=== PATIENT | male | born 1975 | race Two or more races ===

== ENCOUNTER 2023-12-16 08:47 | Emergency (ER) | payer BC ==
[~2023-12-16] VITALS: Ht 162.6 cm; Wt 61.4 kg
[2023-12-16 09:17] LABS: Urine Bacteria MANY /hpf (None Seen); Urine Blood Negative /uL (Negative); Urine Clarity HAZY (Clear); Urine Color Yellow (Yellow); Urine Hyaline Cast MOD /lpf (0 - 2); Urine Mucus FEW (None Seen); Urine Protein, UAD 1+ (Negative); Urine Specific Gravity 1.021 (1.001-1.035); Urine Sperm PRESENT /hpf (None Seen); Urine Urobilinogen Normal (Negative); Urine WBC 15 /hpf (0 - 3); Urine pH 5.5 (5.0-8.0)
[2023-12-16 09:20] LABS: Basophils # (auto) 0 10 ^3/uL (0-0.2); Basophils % (auto) 0.6 % (0.0-2.0); Eosinophils # (auto) 0.1 10 ^3/uL (0-0.8); Eosinophils % (auto) 1.2 % (0.0-7.0); Hematocrit 43.1 % (41.0-53.0); Hemoglobin 14.1 g/dL (13.5-17.5); Lymphocytes # (auto) 1.7 10 ^3/uL (0.4-5.4); Mean Corpuscular Hgb Conc. 32.8 g/dL (32.0-36.0); Mean Corpuscular Volume 88.5 fL (80.0-100.0); Monocytes # (auto) 0.5 10 ^3/uL (0-1.3); Monocytes % (auto) 9.1 % (0.0-12.0); Neutrophils # (auto) 3.1 10 ^3/uL (1.6-8.6); Neutrophils % (auto) 57.1 % (37.0-80.0); Red Blood Cells 4.87 10^6/uL (4.5-5.90); Red Cell Distribution Width 14.1 % (11.8-14.3); White Blood Cell 5.3 10^3/uL (4.4-10.8)
[2023-12-16 09:32] LABS: Amphetamine Screen, Urine Neg (NEGATIVE); Barbiturate Scree,Urine Neg (NEGATIVE); Benzodiazephine Screen, Urine Neg (NEGATIVE); Cocaine Screen, Urine Neg (NEGATIVE); Opiate Scree,Urine Neg (NEGATIVE)
[2023-12-16 09:33] LABS: Cannabinoid Screen, Urine Neg (NEGATIVE); Phencyclidine Screen, Urine Neg (NEGATIVE)
[2023-12-16 09:39] LABS: Albumin 4.4 g/dL (3.2-4.8); Alkaline Phosphatase 55 U/L (46-116); Anion Gap 3 (5-15); Aspartate Aminotransferase < 8 U/L (13-40); BUN/Creatinine Ratio 12.1 (10.0-20.0); Blood Urea Nitrogen 12 mg/dL (9-23); Calcium 9.3 mg/dL (8.5-10.1); Carbon Dioxide 29 mmol/L (20-30); Chloride 102 mmol/L (98-107); Glucose 325 mg/dL (74-106); Sodium 134 mmol/L (136-145)
[2023-12-16 09:40] LABS: Bilirubin, Total 0.8 mg/dL (0.2-1.0); Total Protein 6.5 g/dL (5.7-8.2)
[2023-12-16 09:45] LABS: Alanine Aminotransferase < 9 U/L (7-40)
[2023-12-16] MEDS ORDERED: PANT40TA2 PO (11:32)
[2023-12-16 11:49] VITALS: BP 114/88; PULSE 93; RESP 16; TEMP 98.3; O2SAT 100
[2023-12-16] MEDS: PANTOPRAZOLE 40 MG TAB PO ONE (12:01)
== END 2023-12-16 12:03 | disposition home or self-care (01) ==
LOC: ER 08:47
DX: K29.00 Acute gastritis without bleeding (principal); E11.65 Type 2 diabetes mellitus with hyperglycemia; I10 Essential (primary) hypertension; Z79.899 Other long term (current) drug therapy
CPT/HCPCS: 36415; 80053; 80307; 81001; 85025

== ENCOUNTER 2024-07-27 17:42 | Inpatient (IN) | payer BC ==
[~2024-07-27] VITALS: Ht 154.9 cm; Wt 60.6 kg
[~2024-07-27 17:42] MED LIST: PANT40TA2 PO
[2024-07-27] MEDS: LORazepam 2MG/ML-1ML VIAL IV ONE (18:00)
[2024-07-27 18:29] LABS: Basophils # (auto) 0.1 10 ^3/uL (0-0.2); Eosinophils # (auto) 0.3 10 ^3/uL (0-0.8); Eosinophils % (auto) 2.8 % (0.0-7.0); Hemoglobin 15.6 g/dL (13.5-17.5); Lymphocytes # (auto) 3.3 10 ^3/uL (0.4-5.4); Monocytes # (auto) 0.9 10 ^3/uL (0-1.3); Red Cell Distribution Width 14.9 % (11.8-14.3)
[2024-07-27 18:30] LABS: Basophils % (auto) 1.1 % (0.0-2.0); Hematocrit 47.8 % (41.0-53.0); Lymphocytes % (auto) 28.7 % (10.0-50.0); Mean Corpuscular Hgb Conc. 32.7 g/dL (32.0-36.0); Mean Corpuscular Volume 88.6 fL (80.0-100.0); Neutrophils # (auto) 6.8 10 ^3/uL (1.6-8.6); Neutrophils % (auto) 59.4 % (37.0-80.0); Nucleated Red Blood Cells % 0.1 %; Platelet Count (auto) 477 10^3/uL (140-450); Red Blood Cells 5.39 10^6/uL (4.5-5.90); White Blood Cell 11.5 10^3/uL (4.4-10.8)
[2024-07-27 18:40] LABS: Base Excess -9.8 mmol/L (-2.0-3.0)
[2024-07-27 18:50] LABS: Alanine Aminotransferase 15 U/L (7-40); Alkaline Phosphatase 99 U/L (46-116); Anion Gap 25 (5-15); Aspartate Aminotransferase < 8 U/L (13-40); BUN/Creatinine Ratio 12.1 (10.0-20.0); Blood Urea Nitrogen 21 mg/dL (9-23); Calcium 10.8 mg/dL (8.7-10.4); Carbon Dioxide 15 mmol/L (20-31); Chloride 96 mmol/L (98-107); Potassium 5.2 mmol/L (3.5-5.1); Sodium 136 mmol/L (136-145)
[2024-07-27 18:51] LABS: Albumin 4.8 g/dL (3.2-4.8); Bilirubin, Total 0.6 mg/dL (0.2-1.0)
[2024-07-27 19:09] LABS: Glucose 538 mg/dL (74-106)
[2024-07-27] MEDS: SODIUM CHLORIDE 0.9% 1,000 ML IV SCH ×2 (19:15→23:15)
[2024-07-27] MEDS ORDERED: DEXTROSE (50%) 50ML SYRG IV PRN (19:15)
[2024-07-27] MEDS: SODIUM CHLORIDE 0.9% 1,000 ML IV ONE (19:28)
[2024-07-27] MEDS: ACCU-CHEK COMFORT CURVE STRIP VI SCH (19:30)
[2024-07-27] MEDS: INSULIN DRIP 100 UNIT/100ML 100 ML IV SCH (19:30)
[2024-07-27] MEDS: INSULIN LANTUS (GLARGINE) 1 /0.01ml (100units/ml) SC ONE (19:51)
[2024-07-27] MEDS: MIDAZOLAM HCL 2MG/2ML 2ml VIAL (1mg/ml) IM ONE (19:52)
[2024-07-27 20:17] LABS: Urine Bacteria None Seen /hpf (None Seen); Urine WBC None Seen /hpf (0 - 3)
[2024-07-27 20:18] LABS: Magnesium 2.3 mg/dL (1.6-2.6)
[2024-07-27 20:19] LABS: Phosphorus 5.7 mg/dL (2.4-5.1)
[2024-07-27 21:38] LABS: Urine Blood Negative /uL (Negative); Urine Clarity Clear (Clear); Urine Color Light-Yellow (Yellow); Urine Hyaline Cast FEW /lpf (0 - 2); Urine Protein, UAD Negative (Negative); Urine Specific Gravity 1.033 (1.001-1.035); Urine Urobilinogen Normal (Negative)
[2024-07-27] MEDS ORDERED: MORPHINE SULFATE INJ 2 MG/ml SYRG IV PRN (21:45)
[2024-07-27] MEDS ORDERED: NITROGLYCERIN 0.4 MG SL TAB SL PRN (21:45)
[2024-07-27] MEDS: ONDANSETRON HCL 4 MG/2 ML VIAL IV ONE (21:53)
[2024-07-27] MEDS: HALOPERIDOL LACTATE 5 MG/ML INJ VIAL IM ONE (21:53)
[2024-07-27] MEDS: diphenhdrAMINE HCL 50 MG/1 ML VL IM ONE (21:54)
[2024-07-27 22:11] LABS: Amphetamine Screen, Urine Neg (NEGATIVE); Barbiturate Scree,Urine Neg (NEGATIVE); Benzodiazephine Screen, Urine Neg (NEGATIVE); Cannabinoid Screen, Urine Neg (NEGATIVE); Cocaine Screen, Urine Neg (NEGATIVE); Opiate Scree,Urine Neg (NEGATIVE); Phencyclidine Screen, Urine Neg (NEGATIVE)
[2024-07-28 00:45] LABS: Base Excess -5.4 mmol/L (-2.0-3.0)
[2024-07-28] MEDS: SODIUM CHLORIDE 0.9% 1,000 ML IV SCH (01:15)
[2024-07-28 01:24] LABS: Potassium 3.8 mmol/L (3.5-5.1); Sodium 140 mmol/L (136-145)
[2024-07-28 01:25] LABS: Anion Gap 15 (5-15); Carbon Dioxide 18 mmol/L (20-31)
[2024-07-28 01:30] LABS: BUN/Creatinine Ratio 18.6 (10.0-20.0); Blood Urea Nitrogen 19 mg/dL (9-23)
[2024-07-28 01:56] LABS: Chloride 107 mmol/L (98-107); Glucose 135 mg/dL (74-106)
[2024-07-28] MEDS: ONDANSETRON HCL 4 MG/2 ML VIAL IV PRN (01:59)
[2024-07-28 04:36] LABS: Basophils # (auto) 0.1 10 ^3/uL (0-0.2); Basophils % (auto) 0.5 % (0.0-2.0); Eosinophils # (auto) 0 10 ^3/uL (0-0.8); Hematocrit 41.8 % (41.0-53.0); Hemoglobin 13.9 g/dL (13.5-17.5); Lymphocytes # (auto) 0.9 10 ^3/uL (0.4-5.4); Lymphocytes % (auto) 7.1 % (10.0-50.0); Mean Corpuscular Hemoglobin 28.5 pg (28.0-32.0); Mean Corpuscular Hgb Conc. 33.2 g/dL (32.0-36.0); Mean Corpuscular Volume 85.9 fL (80.0-100.0); Monocytes # (auto) 0.7 10 ^3/uL (0-1.3); Monocytes % (auto) 5.1 % (0.0-12.0); Neutrophils # (auto) 11.7 10 ^3/uL (1.6-8.6); Neutrophils % (auto) 87.3 % (37.0-80.0); Platelet Count (auto) 340 10^3/uL (140-450); Red Blood Cells 4.86 10^6/uL (4.5-5.90); Red Cell Distribution Width 14.5 % (11.8-14.3); White Blood Cell 13.4 10^3/uL (4.4-10.8)
[2024-07-28 04:53] LABS: Alanine Aminotransferase 13 U/L (7-40); Albumin 4.3 g/dL (3.2-4.8); Alkaline Phosphatase 77 U/L (46-116); Anion Gap 15 (5-15); Aspartate Aminotransferase 21 U/L (13-40); BUN/Creatinine Ratio 17.1 (10.0-20.0); Bilirubin, Total 0.4 mg/dL (0.2-1.0); Blood Urea Nitrogen 18 mg/dL (9-23); Calcium 9.4 mg/dL (8.7-10.4); Carbon Dioxide 19 mmol/L (20-31); Chloride 107 mmol/L (98-107); Glucose 137 mg/dL (74-106); Sodium 141 mmol/L (136-145); Total Protein 6.8 g/dL (5.7-8.2)
[2024-07-28] MEDS: ACETAMINOPHEN 650 MG RECT SUPP PR PRN (06:08)
[2024-07-28] MEDS: LORazepam 2MG/ML-1ML VIAL IM ONE (07:47)
[2024-07-28] MEDS: LORazepam 2MG/ML-1ML VIAL IV ONE ×5 (07:52→16:15)
[2024-07-28 08:42] VITALS: PULSE 107; RESP 26; O2SAT 96
[2024-07-28] MEDS: cefTRIAXone 1GM/50ML D5W 50 ML IV SCH (09:18)
[2024-07-28] MEDS: LORazepam 2MG/ML-1ML VIAL ONE ×3 (09:50→15:12)
[2024-07-28] MEDS ORDERED: LORazepam 2MG/ML-1ML VIAL IV PRN ×2 (10:00→15:00)
[2024-07-28] MEDS: INSULIN LANTUS (GLARGINE) 1 /0.01ml (100units/ml) SC SCH (10:25)
[2024-07-28] MEDS: HALOPERIDOL LACTATE 5 MG/ML INJ VIAL IM PRN (10:55)
[2024-07-28] MEDS ORDERED: ACETAMINOPHEN IV 1000 MG/100ML (10MG/ML) IV PRN (11:30)
[2024-07-28] MEDS: chlordiazePOXIDE HCL 5 MG CAP PO SCH (12:00)
[2024-07-28] MEDS: ACCU-CHEK COMFORT CURVE STRIP VI SCH (12:23)
[2024-07-28] MEDS: InsuLIN REG 1unit/0.01ml Soln (100units/ml) SC SCH (12:25)
[2024-07-28 13:53] LABS: Chloride 110 mmol/L (98-107); Potassium 3.6 mmol/L (3.5-5.1); Sodium 142 mmol/L (136-145)
[2024-07-28 13:54] LABS: Anion Gap 14 (5-15); Carbon Dioxide 18 mmol/L (20-31)
[2024-07-28 13:55] LABS: Calcium 9.2 mg/dL (8.7-10.4)
[2024-07-28 13:59] LABS: BUN/Creatinine Ratio 15.5 (10.0-20.0); Blood Urea Nitrogen 18 mg/dL (9-23); Glucose 178 mg/dL (74-106)
[2024-07-28] MEDS: FOLIC ACID 1 MG, MULTIPLE VITAMIN 10 ML, MAGNESIUM SULF SDV 50% 8 MEQ, THIAMINE INJ 100... INJ SCH (18:03)
[2024-07-28] MEDS: LORazepam 2MG/ML-1ML VIAL IV PRN (18:33)
[2024-07-28 20:00] VITALS: PULSE 83; RESP 22; O2SAT 97
[2024-07-28] MEDS: DEXTROSE (50%) 50ML SYRG IV PRN (20:11)
[2024-07-29 05:21] LABS: Basophils # (auto) 0.2 10 ^3/uL (0-0.2); Basophils % (auto) 1.2 % (0.0-2.0); Eosinophils # (auto) 0.2 10 ^3/uL (0-0.8); Eosinophils % (auto) 1.1 % (0.0-7.0); Hematocrit 39.1 % (41.0-53.0); Hemoglobin 13.4 g/dL (13.5-17.5); Lymphocytes # (auto) 2.4 10 ^3/uL (0.4-5.4); Mean Corpuscular Hgb Conc. 34.2 g/dL (32.0-36.0); Mean Corpuscular Volume 84.9 fL (80.0-100.0); Monocytes # (auto) 1.4 10 ^3/uL (0-1.3); Monocytes % (auto) 10.7 % (0.0-12.0); Neutrophils # (auto) 9.2 10 ^3/uL (1.6-8.6); Platelet Count (auto) 296 10^3/uL (140-450); Red Blood Cells 4.61 10^6/uL (4.5-5.90); Red Cell Distribution Width 14.5 % (11.8-14.3); White Blood Cell 13.4 10^3/uL (4.4-10.8)
[2024-07-29 05:34] LABS: Chloride 108 mmol/L (98-107); Potassium 3.3 mmol/L (3.5-5.1); Sodium 137 mmol/L (136-145)
[2024-07-29 05:35] LABS: Anion Gap 8 (5-15); Carbon Dioxide 21 mmol/L (20-31)
[2024-07-29 05:40] LABS: BUN/Creatinine Ratio 15.9 (10.0-20.0); Blood Urea Nitrogen 13 mg/dL (9-23); Glucose 208 mg/dL (74-106)
[2024-07-29 08:19] VITALS: PULSE 72; RESP 13; O2SAT 96
[2024-07-29] MEDS: POTASSIUM CHLORIDE 40 MEQ, LIDOCAINE 1% (LOCAL ANESTH.) 4 ML in SODIUM CHL 0.9% 250 ML IV ONE (10:31)
[2024-07-29] MEDS ORDERED: ACETAMINOPHEN 325 MG TAB PO PRN (13:00)
[2024-07-29 13:06] VITALS: BP 116/70; PULSE 75; RESP 16; TEMP 97.5; O2SAT 96
[2024-07-29] MEDS ORDERED: METF-372 PO (13:32)
[2024-07-29] MEDS ORDERED: DAPA1TAB4 PO (13:32)
[2024-07-29] MEDS ORDERED: INSU1INJ3 SC (13:32)
[2024-07-29 16:42] VITALS: BP 122/64; PULSE 64; RESP 16; TEMP 97.8; O2SAT 97
[2024-07-29 20:00] VITALS: PULSE 78; RESP 19; O2SAT 97
[2024-07-29 21:00] VITALS: BP 113/71; PULSE 77; RESP 18; TEMP 97.4; O2SAT 97
[2024-07-30] VITALS (7 sets, daily range): BP systolic 91–129; BP diastolic 59–80; PULSE 68–90; RESP 18–20; TEMP 97–98.6; O2SAT 96–98
[2024-07-30 08:28] LABS: Calcium 9.1 mg/dL (8.7-10.4); Chloride 109 mmol/L (98-107); Potassium 3.3 mmol/L (3.5-5.1); Sodium 141 mmol/L (136-145)
[2024-07-30 08:29] LABS: Anion Gap 9 (5-15); Carbon Dioxide 23 mmol/L (20-31)
[2024-07-30 08:34] LABS: BUN/Creatinine Ratio 13.9 (10.0-20.0); Blood Urea Nitrogen 11 mg/dL (9-23); Glucose 141 mg/dL (74-106)
[2024-07-30] MEDS: MULTIPLE VITAMIN TAB PO SCH (10:41)
[2024-07-30] MEDS: THIAMINE HCL 100 MG TAB PO SCH (10:41)
[2024-07-30] MEDS: POTASSIUM CHL 20 Meq TABLET PO ONE (10:41)
[2024-07-30] MEDS: levETIRAcetam 500 MG TAB PO SCH (21:51)
[2024-07-31 01:00] VITALS: BP 104/70; PULSE 94; RESP 17; TEMP 97.8; O2SAT 99
[2024-07-31 05:00] VITALS: BP 91/60; PULSE 77; RESP 20; TEMP 97.7; O2SAT 97
[2024-07-31 08:00] VITALS: PULSE 61; PULSE 74; RESP 14; O2SAT 99
[2024-07-31 09:00] VITALS: BP 117/79; PULSE 76; RESP 16; TEMP 98; O2SAT 97
[2024-07-31 13:00] VITALS: BP 118/70; PULSE 74; RESP 14; TEMP 98; O2SAT 99
[2024-07-31 17:00] VITALS: BP_SYST 117; BP_DIAS 69; BP_DIAS 79; PULSE 76; PULSE 81; RESP 14; RESP 16; TEMP 97.8; TEMP 98; O2SAT 97; O2SAT 98
== END 2024-07-31 18:12 | disposition home or self-care (01) | DRG 637 ==
LOC: EDBD 17:42 → ER 17:42 → OVERFLOW 21:40 → TELE-WESTW 07-29 12:38
PROVIDERS: ADMIT Nurse Practitioner; ATTEND Nurse Practitioner Acute Care
DX: E11.10 Type 2 diabetes mellitus with ketoacidosis without coma (principal); G93.41 Metabolic encephalopathy; F10.231 Alcohol dependence with withdrawal delirium; G40.409 Other generalized epilepsy and epileptic syndromes, not intractable, without status epilepticus; E11.649 Type 2 diabetes mellitus with hypoglycemia without coma; G31.2 Degeneration of nervous system due to alcohol; E87.6 Hypokalemia; I10 Essential (primary) hypertension; D72.829 Elevated white blood cell count, unspecified; Z83.3 Family history of diabetes mellitus; Z82.49 Family history of ischemic heart disease and other diseases of the circulatory system; Z79.4 Long term (current) use of insulin; Z91.199 Patient's noncompliance with other medical treatment and regimen due to unspecified reason; Z79.899 Other long term (current) drug therapy; Y90.9 Presence of alcohol in blood, level not specified
CPT/HCPCS: 36415; 36600; 70450; 70551; 71045; 74176; 80048; 80053; 80307; 80320; 81001; 82010; 82550; 82805; 82962; 83036; 83605; 83735; 83930; 84100; 85025; 87040; 95819; G0378; J1815; J2003; J2250; J2405

== ENCOUNTER 2024-10-12 08:03 | Emergency (ER) | payer BC ==
[~2024-10-12] VITALS: Ht 162.6 cm; Wt 60.0 kg
[~2024-10-12 08:03] MED LIST changes: +DAPA1TAB4 PO; +INSU1INJ3 SC; +METF-372 PO
--- NOTE | 2024-10-12 08:27 | ED.PDOC ---
History of Present Illness HPI Comments 49 y/o M presents with c/o non-radiating, epigastric abdominal pain, nausea, and vomiting for the past 3x days, today. Patient comments on Hx of GERD, DM w/Metformin, HTN, and EtOH use, with no additional relevant or pertinent Hx endorsed. He denies having any diarrhea, fever, chills, urinary symptoms or mod ifiers at this time. Chief Complaint: Abdominal Pain Time Seen by MD: 08:15 Primary Care Provider: DAIN Farah Notes: Nurses Notes, Medications, Allergies Allergies: Coded Allergies: NO KNOWN ALLERGIES (Unverified , 12/16/23) Home Meds Active Scripts Pantoprazole Sodium Sesquihydr (Protonix) 40 Mg Tab, 40 MG PO DAILY for 10 Days, #10 TAB Prov:LUISA ROPER MD 12/16/23 Reported Medications Insulin NPH Isophane & Reg (Hu (Humulin 70/30 Kwikpen (70-30) 100 Unit/ml) 1 Inj Inj, SC 07/29/24 Dapagliflozin Propanediol (Farxiga) 10 Mg Tab, 5 MG PO BID 07/29/24 Metformin Hydrochloride (Metformin Hcl) 1,000 Mg Tab, 1 TAB PO DAILY 07/29/24 Information Source: Patient Mode of Arrival: Ambulatory Severity: Moderate Timing: Days Duration: Since onset Prehospital treatment: None Past Medical History PAST MEDICAL HISTORY: DM, GERD, HTN Surgical History: Denies all surgeries Family History Family History: Unknown Social History Smoker: Non-Smoker Alcohol: Denies ETOH Use Drugs: Denies Drug Use Lives In: Home Gastrointestinal: reports: abdominal pain, nausea, vomiting All Other Systems: Reviewed and Negative (negative unless stated above or in HPI) Physical Exam General Appearance: Moderate Distress HEENT: Normal ENT Inspection, Pharynx Normal, TMs Normal Neck: Full Range of Motion, Non-Tender, Normal, Normal Inspection Respiratory: Chest Non-Tender, Lungs Clear, No Accessory Muscle Use, No Respiratory Distress, Normal Breath Sounds Cardiovascular: No Edema, No JVD, No Murmur, No Gallop, Normal Peripheral Pulses, Regular Rate/Rhythm Breast Exam: Deferred Gastrointestinal: No Organomegaly, Non Tender, No Pulsatile Mass, Normal Bowel Sounds, Soft Genitalia: Deferred Pelvic: Deferred Rectal: Deferred Extremities: No calf tenderness, Normal capillary refill, Normal inspection, Normal range of motion, Non-tender, No pedal edema Musculoskeletal : Apperance: Normal Neurologic: Alert, hotel maintenance engineer II-XII nml as Tested, No Motor Deficits, Normal Affect, Normal Mood, No Sensory Deficits Cerebellar Function: Normal Reflexes: Normal Skin: Dry, Normal Color, Warm Peripheral Pulses: 3+ Radial (R), 3+ Radial (L) Lymphatic: No Adenopathy Was a procedure done? Was a procedure done?: No Differential Dx Considerations may include: gastritis, gastroenteritis, PUD, GERD, cholelithiasis, cholecystitis, spoiled food X-Ray, Labs, Meds, VS Vital Signs Date Time Temp Pulse Resp B/P (MAP) Pulse Ox O2 Delivery O2 Flow Rate FiO2 10/12/24 09:50 98.1 94 16 141/90 (107) 100 98.1 10/12/24 09:50 94 16 141/90 10/12/24 09:14 80 18 178/90 10/12/24 08:27 97.8 76 16 167/92 (117) 98 97.8 10/12/24 08:27 76 16 99 Room Air 10/12/24 08:09 98.4 89 20 155/93 (113) 100 Lab Test 10/12/24 10:10 10/12/24 09:05 10/12/24 08:13 Range/Units White Blood Count 9.3 4.4-10.8 10^3/uL Red Blood Count 5.12 4.5-5.90 10^6/uL Hemoglobin 15.0 13.5-17.5 g/dL Hematocrit 44.0 41.0-53.0 % Mean Corpuscular Volume 85.9 80.0-100.0 fL Mean Corpuscular Hemoglobin 29.3 28.0-32.0 pg Mean Corpuscular Hemoglobin Concent 34.1 32.0-36.0 g/dL Red Cell Distribution Width 14.9 H 11.8-14.3 % Platelet Count 237 140-450 10^3/uL Mean Platelet Volume 8.7 6.9-10.8 fL Neutrophils (%) (Auto) 79.5 37.0-80.0 % Lymphocytes (%) (Auto) 13.3 10.0-50.0 % Monocytes (%) (Auto) 6.6 0.0-12.0 % Eosinophils (%) (Auto) 0.1 0.0-7.0 % Basophils (%) (Auto) 0.5 0.0-2.0 % Neutrophils # (Auto) 7.4 1.6-8.6 10 ^3/uL Lymphocytes # (Auto) 1.2 0.4-5.4 10 ^3/uL Monocytes # (Auto) 0.6 0-1.3 10 ^3/uL Eosinophils # (Auto) 0 0-0.8 10 ^3/uL Basophils # (Auto) 0 0-0.2 10 ^3/uL Nucleated Red Blood Cells 0.0 % Sodium Level 136 136-145 mmol/L Potassium Level 3.5 3.5-5.1 mmol/L Chloride Level 101 98-107 mmol/L Carbon Dioxide Level 25 20-31 mmol/L Anion Gap 10 5-15 Blood Urea Nitrogen 19 9-23 mg/dL Creatinine 0.90 0.700-1.30 mg/dL Glomerular Filtration Rate Calc 103 >90 mL/min BUN/Creatinine Ratio 21.1 H 10.0-20.0 Serum Glucose 253 H 74-106 mg/dL Calcium Level 9.6 8.7-10.4 mg/dL POC Glucose 287 H 263 H 70-106 mg/dl Current Medications Medications (Trade) Dose Ordered Sig/Michael Route Start Time Stop Time Status Last Admin Sodium Chloride 1,000 ml @ 1,000 mls/hr Q1H ONCE IV 10/12/24 08:30 10/12/24 09:29 DC 10/12/24 08:40 Ondansetron HCl (Zofran) 4 mg ONCE ONCE IV 10/12/24 08:45 10/12/24 08:46 DC 10/12/24 09:13 Insulin Human Regular (InsuLIN R) 2 units ONCE ONCE IV 10/12/24 08:45 10/12/24 08:46 DC 10/12/24 09:13 Morphine Sulfate 2 mg ONCE ONCE IV 10/12/24 09:00 10/12/24 09:01 DC 10/12/24 09:14 Patient alert. Complaining of nausea vomiting. Vitals stable. Answering all questions. Blood sugar elevated. Establish intravenous access. Was given fluids. Was given insulin. Reviewed his previous visit. Explained to the patient. On re-evaluation abdomen is soft nontender. States that he is feeling much better. WBC within normal limits. Satisfied with the treatment plan. Was told to follow up with his primary care physician. Was told to come back if there is any problem. Time of 1ST Reevaluation: 08:45 Reevaluation 1ST: Improved Time of 2ND Reevaluation: 11:20 Reevaluation 2ND: Improved Patient Education/Counseling: Diagnosis, Treatment Family Education/Counseling: No Family Present Departure 1 Departure Time of Disposition: 08:33 Impression: Primary Impression: Uncontrolled diabetes mellitus Qualified Codes: E13.65 - Other specified diabetes mellitus with hyperglycemia Disposition: 01 HOME / SELF CARE / HOMELESS Condition: Good Discharged With: Self Critical Care Note Critical Care Time?: No Stability Stability form required: No Heart Score Heart Score: Heart Score Response (Comments) Value History N/A 0 EKG N/A 0 Age N/A 0 Risk Factors N/A 0 Troponin N/A 0 Total 0 I personally scribed for LUISA ROPER MD ([email or web address]) on 10/12/24 at 08:27. Electronically submitted by Jamie Chen ([email or web address]). LUISA ROPER MD Oct 12, 2024 08:27
[2024-10-12] MEDS: SODIUM CHLORIDE 0.9% 1,000 ML IV ONE (08:40)
[2024-10-12] MEDS: ONDANSETRON HCL 4 MG/2 ML VIAL IV ONE (09:13)
[2024-10-12] MEDS: InsuLIN REG 1unit/0.01ml Soln (100units/ml) IV ONE (09:13)
[2024-10-12] MEDS: MORPHINE SULFATE INJ 2 MG/ml SYRG IV ONE (09:14)
[2024-10-12 09:50] VITALS: TEMP 98.1
[2024-10-12 10:39] LABS: Chloride 101 mmol/L (98-107)
[2024-10-12 10:40] LABS: Anion Gap 10 (5-15); Carbon Dioxide 25 mmol/L (20-31)
[2024-10-12 10:41] LABS: Calcium 9.6 mg/dL (8.7-10.4)
[2024-10-12 10:42] LABS: Potassium 3.5 mmol/L (3.5-5.1); Sodium 136 mmol/L (136-145)
[2024-10-12 10:46] LABS: BUN/Creatinine Ratio 21.1 (10.0-20.0); Blood Urea Nitrogen 19 mg/dL (9-23)
[2024-10-12 10:49] LABS: Basophils # (auto) 0 10 ^3/uL (0-0.2); Basophils % (auto) 0.5 % (0.0-2.0); Eosinophils # (auto) 0 10 ^3/uL (0-0.8); Eosinophils % (auto) 0.1 % (0.0-7.0); Lymphocytes # (auto) 1.2 10 ^3/uL (0.4-5.4); Lymphocytes % (auto) 13.3 % (10.0-50.0); Mean Corpuscular Hemoglobin 29.3 pg (28.0-32.0); Mean Corpuscular Hgb Conc. 34.1 g/dL (32.0-36.0); Mean Corpuscular Volume 85.9 fL (80.0-100.0); Monocytes # (auto) 0.6 10 ^3/uL (0-1.3); Monocytes % (auto) 6.6 % (0.0-12.0); Neutrophils # (auto) 7.4 10 ^3/uL (1.6-8.6); Neutrophils % (auto) 79.5 % (37.0-80.0); Platelet Count (auto) 237 10^3/uL (140-450); Red Blood Cells 5.12 10^6/uL (4.5-5.90); Red Cell Distribution Width 14.9 % (11.8-14.3); White Blood Cell 9.3 10^3/uL (4.4-10.8)
[2024-10-12 11:06] LABS: Glucose 253 mg/dL (74-106)
[2024-10-12 11:28] VITALS: BP 153/106; PULSE 79; RESP 16; O2SAT 100
[2024-10-12 12:00] LABS: Urine Bacteria None Seen /hpf (None Seen)
[2024-10-12 12:13] LABS: Urine Blood Negative /uL (Negative); Urine Clarity Clear (Clear); Urine Color Yellow (Yellow); Urine Mucus FEW (None Seen); Urine Protein, UAD 1+ (Negative); Urine Specific Gravity 1.035 (1.001-1.035); Urine Sperm PRESENT /hpf (None Seen); Urine Squamous Epithelial Cell None Seen /hpf (<5); Urine Urobilinogen Normal (Negative); Urine WBC 1 /hpf (0 - 3); Urine pH 6.5 (5.0-9.0)
[2024-10-13] MEDS ORDERED: PANT40TA2 PO (12:08)
[2024-10-13] MEDS ORDERED: ALUMCHW6 PO (12:08)
== END 2024-10-12 11:43 | disposition home or self-care (01) ==
LOC: ER 08:03
DX: E11.65 Type 2 diabetes mellitus with hyperglycemia (principal); I10 Essential (primary) hypertension; K21.9 Gastro-esophageal reflux disease without esophagitis; Z79.899 Other long term (current) drug therapy
CPT/HCPCS: 36415; 80048; 81001; 82962; 85025; 96361; 96374; 96375; 99285; J1815; J2270; J2405; J7030

== ENCOUNTER 2024-10-13 08:32 | Emergency (ER) | payer BC ==
[~2024-10-13] VITALS: Ht 162.6 cm; Wt 60.2 kg
[2024-10-13 09:02] VITALS: TEMP 98.3
[2024-10-13] MEDS: SODIUM CHLORIDE 0.9% 500 ML IVB ONE (09:15)
--- NOTE | 2024-10-13 09:25 | ED.PDOC ---
GI ASSESSMENT HPI Comments 49Y M with PMHx DM, GERD, and HTN presents to ED for chief complaint epigastric abdominal pain x4days with nausea, vomiting, and heartburn. Pt states he had two episodes of hematemesis last night. Pt drinks alcohol occasionally and his last drink was on 10/09/2024. Pt denies tobacco and illicit drug use. Pt was seen at [facility] ER yesterday, 10/12/2024, and was dx with uncontrolled DM. Chief Complaint: Abdominal Pain Time Seen by MD: 09:10 Primary Care Provider: DAIN Reviewed Notes: Nurses Notes, Medications, Allergies Allergies: Coded Allergies: NO KNOWN ALLERGIES (Unverified , 12/16/23) Home Meds Active Scripts Pantoprazole Sodium Sesquihydr (Protonix) 40 Mg Tab, 40 MG PO DAILY for 30 Days, #30 TAB Prov:CHLOÉ PALMA MD 10/13/24 Aluminum Hydroxide-Mag Carb (Gaviscon Extra Strength) 1 Chw Chw, 1 CHW PO QID, #60 TAB.CHEW Prov:CHLOÉ PALMA MD 10/13/24 Pantoprazole Sodium Sesquihydr (Protonix) 40 Mg Tab, 40 MG PO DAILY for 10 Days, #10 TAB Prov:LUISA ROPER MD 12/16/23 Reported Medications Insulin NPH Isophane & Reg (Hu (Humulin 70/30 Kwikpen (70-30) 100 Unit/ml) 1 Inj Inj, SC 07/29/24 Dapagliflozin Propanediol (Farxiga) 10 Mg Tab, 5 MG PO BID 07/29/24 Metformin Hydrochloride (Metformin Hcl) 1,000 Mg Tab, 1 TAB PO DAILY 07/29/24 Information Source: Patient Mode of Arrival: Ambulatory Timing: Days Duration: Since onset Quality: Sharp Vomitus: Watery, Streaking Blood Stool: Normal Recent: None Recent Hx of: None Pain Location: Epigastric Modifying Factors: Nothing Associated sign and symptoms: Nausea, Vomiting, Hematemesis, Abdominal Pain Past Medical History PAST MEDICAL HISTORY: DM, GERD, HTN Surgical History (Other): Lt finger amputated Family History Family History: Unknown Social History Smoker: Non-Smoker Alcohol: Occasionally Drugs: Denies Drug Use Lives In: Home Constitutional: denies: chills, diaphoresis, fatigue, fever, malaise, sweats, weakness, others EENTM: denies: blurred vision, double vision, ear bleeding, ear discharge, ear drainage, ear pain, ear ringing, eye pain, eye redness, hearing loss, mouth pain, mouth swelling, nasal discharge, nose bleeding, nose congestion, nose pain, photophobia, tearing, throat pain, throat swelling, voice changes, others Respiratory: denies: cough, hemoptysis, orthopnea, SOB at rest, shortness of breath, SOB with excertion, stridor, wheezing, others Cardiovascular: denies: chest pain, dizzy spells, diaphoresis, Dyspnea on exertion, edema, irregular heart beat, left arm pain, lightheadedness, pa lpitations, PND, syncope, others Gastrointestinal: reports: abdominal pain, hematemesis, nausea, vomiting, others (heartburn); denies: abdomen distended, blood streaked bowels, constipated, diarrhea, dysphagia, difficulty swallowing, melena, poor appetite, poor fluid intake, rectal bleeding, rectal pain Genitourinary: denies: burning, dysuria, flank pain, frequency, hematuria, incontinence, penile discharge, penile sore, pain, testicle pain, testicle swelling, urgency, others Neurological: denies: dizziness, fainting, headache, left sided numbness, left sided weakness, numbness, paresthesia, pre-existing deficit, right sided numbness, right sided weakness, seizure, speech problems, tingling, tremors, weakness, others Musculoskeletal: denies: back pain, gout, joint pain, joint swelling, muscle pain, muscle stiffness, neck pain, others Integumetry: denies: bruises, change in color, change in hair/nails, dryness, laceration, lesions, lumps, rash, wounds, others Allergic/Immunocompromised: denies: Difficulty Healing, Frequent Infections, Hives, Itching, others Hematologic/Lymphatic: denies: anemia, blood clots, easy bleeding, easy brui sing, swollen glands, others Endocrine: denies: excessive hunger, excessive sweating, excessive thirst, ex cessive urination, flushing, intolerance to cold, intolerance to heat, unexplained weight gain, unexplained weight loss, others Psychiatric: denies: anxiety, bipolar disorder, depression, hopeless, panic disorder, schizophrenia, sleepless, suicidal, others All Other Systems: Reviewed and Negative Physical Exam General Appearance: Mild Distress, Moderate Distress, Normal HEENT: Normal ENT Inspection, PERRL/EOMI, Pharynx Normal, TMs Normal Neck: Full Range of Motion, Non-Tender, Normal, Normal Inspection Respiratory: Chest Non-Tender, Lungs Clear, No Accessory Muscle Use, No Respiratory Distress, Normal Breath Sounds Cardiovascular: No Edema, No JVD, No Murmur, No Gallop, Normal Peripheral Pulses, Regular Rate/Rhythm Breast Exam: Deferred Gastrointestinal: Epigastric, No Organomegaly, No Pulsatile Mass, Normal Bowel Sounds, RUQ, Soft, Tenderness Genitalia: Deferred Pelvic: Deferred Rectal: Deferred Extremities: No calf tenderness, Normal capillary refill, Normal inspection, Normal range of motion, Non-tender, No pedal edema Musculoskeletal : Apperance: Normal Neurologic: Alert, die press operator II-XII nml as Tested, No Motor Deficits, Normal Affect, Normal Mood, No Sensory Deficits Cerebellar Function: Normal Reflexes: Normal Skin: Dry, Normal Color, Warm Peripheral Pulses: 1+ carotid (R), 1+ carotid (L) Lymphatic: No Adenopathy Was a procedure done? Was a procedure done?: No GI differential Dx Differential Diagnosis: Cholecystitis, Esophagitis, Gastritis/PUD, Gastroenteritis, Dehydration, Diabetes/ DKA, Drug toxicity, Electrolyte Imbalance, Hypovolemia, Renal Failure, Anemia X-Ray, Labs, Meds, VS Vital Signs Date Time Temp Pulse Resp B/P (MAP) Pulse Ox O2 Delivery O2 Flow Rate FiO2 10/13/24 11:00 103 18 111/79 (90) 100 10/13/24 09:02 102 20 100 Room Air 10/13/24 09:02 98.3 102 20 150/102 (118) 100 98.3 10/13/24 08:35 98.3 87 16 165/105 (125) 99 Lab Test 10/13/24 09:36 10/13/24 08:42 10/13/24 08:41 Range/Units White Blood Count 6.9 # 4.4-10.8 10^3/uL Red Blood Count 5.06 4.5-5.90 10^6/uL Hemoglobin 14.8 13.5-17.5 g/dL Hematocrit 43.2 41.0-53.0 % Mean Corpuscular Volume 85.3 80.0-100.0 fL Mean Corpuscular Hemoglobin 29.3 28.0-32.0 pg Mean Corpuscular Hemoglobin Concent 34.3 32.0-36.0 g/dL Red Cell Distribution Width 14.3 11.8-14.3 % Platelet Count 257 140-450 10^3/uL Mean Platelet Volume 8.8 6.9-10.8 fL Neutrophils (%) (Auto) 77.2 37.0-80.0 % Lymphocytes (%) (Auto) 16.1 10.0-50.0 % Monocytes (%) (Auto) 6.2 0.0-12.0 % Eosinophils (%) (Auto) 0.1 0.0-7.0 % Basophils (%) (Auto) 0.4 0.0-2.0 % Neutrophils # (Auto) 5.3 1.6-8.6 10 ^3/uL Lymphocytes # (Auto) 1.1 0.4-5.4 10 ^3/uL Monocytes # (Auto) 0.4 0-1.3 10 ^3/uL Eosinophils # (Auto) 0 0-0.8 10 ^3/uL Basophils # (Auto) 0 0-0.2 10 ^3/uL Nucleated Red Blood Cells 0.2 % Sodium Level 132 L 136-145 mmol/L Potassium Level 3.2 L 3.5-5.1 mmol/L Chloride Level 96 L 98-107 mmol/L Carbon Dioxide Level 26 20-31 mmol/L Anion Gap 10 5-15 Blood Urea Nitrogen 14 9-23 mg/dL Creatinine 0.99 0.700-1.30 mg/dL Glomerular Filtration Rate Calc 92 >90 mL/min BUN/Creatinine Ratio 14.1 10.0-20.0 Serum Glucose 276 H 74-106 mg/dL Calcium Level 9.6 8.7-10.4 mg/dL Magnesium Level 2.0 1.6-2.6 mg/dL Total Bilirubin 1.6 H 0.2-1.0 mg/dL Aspartate Amino Transferase (AST) 9 L 13-40 U/L Alanine Aminotransferase (ALT) 9 7-40 U/L Alkaline Phosphatase 55 46-116 U/L Total Protein 6.6 5.7-8.2 g/dL Albumin 4.2 3.2-4.8 g/dL Lipase 41 12-53 U/L Urine Color Yellow Yellow Urine Clarity Turbid H Clear Urine pH 7.0 5.0-9.0 Urine Specific Mina 1.032 1.001-1.035 Urine Protein Trace H Negative Urine Ketones 2+ H Negative Urine Blood Negative Negative /uL Urine Nitrite Negative Negative Urine Bilirubin Negative Negative Urine Urobilinogen Normal Negative mg/dL Urine Leukocyte Esterase Negative Negative /uL Urine RBC 1 0 - 3 /hpf Urine WBC 8 0 - 3 /hpf Urine Squamous Epithelial Cells None seen <5 /hpf Urine Bacteria Few H None Seen /hpf Urine Mucus Few None Seen Urine Glucose 4+ H Normal mg/dL POC Glucose 250 H 70-106 mg/dl Current Medications Medications (Trade) Dose Ordered Sig/Michael Route Start Time Stop Time Status Last Admin Metoclopramide HCl (Reglan Injection) 10 mg ONCE ONCE IV 10/13/24 09:15 10/13/24 09:19 DC 10/13/24 09:53 Al Hydrox/Mg Hydrox/Simethicone (Maalox Plus) 30 ml ONCE ONCE PO 10/13/24 09:15 10/13/24 09:19 DC 10/13/24 09:37 Belladonna Alkaloids/ Phenobarbital ( Elixir) 5 ml ONCE ONCE PO 10/13/24 09:15 10/13/24 09:19 DC 10/13/24 09:37 Sodium Chloride 500 ml @ 500 mls/hr Q1H ONCE IVB 10/13/24 09:15 10/13/24 10:14 DC 10/13/24 09:15 Pantoprazole Sodium (Protonix Tablet) 40 mg ONCE ONCE PO 10/13/24 09:15 10/13/24 09:19 DC 10/13/24 09:37 [place] [id number] Ph: [phone] DIAGNOSTIC IMAGING Diagnostic Imaging Report : [id number] Signed PATIENT: LEONOR MONK ACCT: [id number] UNIT: [id number] : 1975 LOC: ER ROOM / BED: / AGE / SEX: 49 / M ADM STATUS: REG ER SERVICE 4 ORDERING PHYSICIAN: CHLOÉ PALMA MD PROCEDURE(s): GBUS - GALLBLADDER REASON: Epigastric pain right upper quadrant pain reflux severe ORDER NUMBER(s): [id number], ACCESSION NUMBER(s): [id number] Procedure: US GALLBLADDER 10/13/2024 09:20 AM Indication: Epigastric pain right upper quadrant pain reflux severe Comparison: CT scan dated 07/28/2024 Technique: Grayscale and color images of the right upper quadrant were obtained. FINDINGS: ASCITES: None. LIVER: Liver measures 13.7 cm in craniocaudal. Liver parenchyma is homogeneous in echotexture. No focal lesion is identified. No intrahepatic ductal dilatation. Normal directional flow is seen in the portal vein. GALLBLADDER: No gallstones. No gallbladder wall edema or pericholecystic fluid. Sonographic Rooney's sign is negative. COMMON BILE DUCT: 0.4 cm in caliber. PANCREAS: Visualized portions are unremarkable. RIGHT KIDNEY: Normal in size, 9.6 cm in length without hydronephrosis. No focal lesions identified. AORTA, IVC: Visualized portions are unremarkable. OTHER: None. IMPRESSION: 1. No sonographic evidence for acute abnormality in the right upper quadrant. ATED BY: STEPHANIE FRANCIS MD DICTATED DATE/TIME: 10/13/24 1011 SIGNED BY: STEPHANIE FRANCIS MD SIGNED DATE/TIME: 10/13/24 1011 CC: X-Ray, Labs, Meds, VS Comment Course in the emergency department eventful patient came in complaining of abdominal pain and vomiting History of diabetes and GERD CBC is normal Urine shows shows 4+ glucose and bacteria CMP is normal except for blood sugar of 250 Potassium 3.2 Magnesium 2.0 Lipase 41 Patient has been her head hydrated and treated He is feeling better and will be discharged home to follow up with his PCP Time of 1ST Reevaluation: 09:40 Reevaluation 1ST: Unchanged Patient Education/Counseling: Diagnosis, Treatment Family Education/Counseling: No Family Present Departure 1 Departure Time of Disposition: 12:03 Impression: Primary Impression: Gastritis Qualified Codes: K29.21 - Alcoholic gastritis with bleeding Additional Impressions: Uncontrolled diabetes mellitus Qualified Codes: E11.65 - Type 2 diabetes mellitus with hyperglycemia Hypokalemia Esophagitis Ruled Out: Cholecystitis Disposition: HOME / SELF CARE / HOMELESS Condition: Fair Additional Instructions: Push fluids follow up with your PCP Stop alcohol and stop coughing and all spices e-Prescriptions Pantoprazole Sodium Sesquihydr (Protonix) 40 Mg Tab 40 MG PO DAILY for 30 Days, #30 TAB Prov: CHLOÉ PALMA MD 10/13/24 Aluminum Hydroxide-Mag Carb (Gaviscon Extra Strength) 1 Chw Chw 1 CHW PO QID, #60 TAB.CHEW Prov: CHLOÉ PALMA MD 10/13/24 Discharged With: Self Critical Care Note Critical Care Time?: No Stability Stability form required: No Heart Score Heart Score: Heart Score Response (Comments) Value History N/A 0 EKG N/A 0 Age 45-64 1 Risk Factors No known risk factors 0 Troponin N/A 0 Total 1 I personally scribed for CHLOÉ PALMA MD ([email or web address]) on 10/13/24 at 09:25. Electronically submitted by Mayda Ruelas ([email or web address]). I personally scribed for CHLOÉ PALMA MD ([email or web address]) on 10/13/24 at 10:26. Electronically submitted by Mayda Ruelas ([email or web address]). CHLOÉ PALMA MD Oct 13, 2024 09:25
[2024-10-13] MEDS: DONNATAL 5ml ORAL Elix (BELLADONNA ALK-PHENOBARB) PO ONE (09:37)
[2024-10-13] MEDS: PANTOPRAZOLE 40 MG TAB PO ONE (09:37)
[2024-10-13] MEDS: MAALOX PLUS or MAALOX 30 ML PO ONE (09:37)
[2024-10-13] MEDS: METOCLOPRAMIDE HCL 5MG/ml INJ 2ml VIAL IV ONE (09:53)
[2024-10-13] MEDS: SODIUM CHLORIDE 0.9% 1,000 ML IV ONE (09:59)
--- NOTE | 2024-10-13 10:13 | DVH ---
Procedure: US GALLBLADDER 10/13/2024 09:20 AM Indication: Epigastric pain right upper quadrant pain reflux severe Comparison: CT scan dated 07/28/2024 Technique: Grayscale and color images of the right upper quadrant were obtained. FINDINGS: ASCITES: None. LIVER: Liver measures 13.7 cm in craniocaudal. Liver parenchyma is homogeneous in echotexture. No fo babatunde lesion is identified. No intrahepatic ductal dilatation. Normal directional flow is seen in the portal vein. GALLBLADDER: No gallstones. No gallbladder wall edema or pericholecystic fluid. Sonographic Rooney' s sign is negative. COMMON BILE DUCT: 0.4 cm in caliber. PANCREAS: Visualized portions are unremarkable. RIGHT KIDNEY: Normal in size, 9.6 cm in length without hydronephrosis. No focal lesions identified. AORTA, IVC: Visualized portions are unremarkable. OTHER: None. IMPRESSION: 1. No sonographic evidence for acute abnormality in the right upper quadrant.
[2024-10-13 10:25] LABS: Basophils # (auto) 0 10 ^3/uL (0-0.2); Basophils % (auto) 0.4 % (0.0-2.0); Eosinophils # (auto) 0 10 ^3/uL (0-0.8); Eosinophils % (auto) 0.1 % (0.0-7.0); Hematocrit 43.2 % (41.0-53.0); Hemoglobin 14.8 g/dL (13.5-17.5); Lymphocytes # (auto) 1.1 10 ^3/uL (0.4-5.4); Lymphocytes % (auto) 16.1 % (10.0-50.0); Mean Corpuscular Hemoglobin 29.3 pg (28.0-32.0); Mean Corpuscular Hgb Conc. 34.3 g/dL (32.0-36.0); Mean Corpuscular Volume 85.3 fL (80.0-100.0); Monocytes # (auto) 0.4 10 ^3/uL (0-1.3); Monocytes % (auto) 6.2 % (0.0-12.0); Neutrophils # (auto) 5.3 10 ^3/uL (1.6-8.6); Neutrophils % (auto) 77.2 % (37.0-80.0); Nucleated Red Blood Cells % 0.2 %; Platelet Count (auto) 257 10^3/uL (140-450); Red Blood Cells 5.06 10^6/uL (4.5-5.90); Red Cell Distribution Width 14.3 % (11.8-14.3); White Blood Cell 6.9 10^3/uL (4.4-10.8)
[2024-10-13 10:27] LABS: Urine Bacteria FEW /hpf (None Seen); Urine Blood Negative /uL (Negative); Urine Clarity Turbid (Clear); Urine Mucus FEW (None Seen); Urine Protein, UAD TRACE (Negative); Urine Specific Gravity 1.032 (1.001-1.035); Urine Squamous Epithelial Cell None Seen /hpf (<5); Urine Urobilinogen Normal (Negative); Urine WBC 8 /hpf (0 - 3)
[2024-10-13 10:29] LABS: Urine Color Yellow (Yellow)
[2024-10-13 10:33] LABS: Albumin 4.2 g/dL (3.2-4.8); Alkaline Phosphatase 55 U/L (46-116); Anion Gap 10 (5-15); BUN/Creatinine Ratio 14.1 (10.0-20.0); Blood Urea Nitrogen 14 mg/dL (9-23); Calcium 9.6 mg/dL (8.7-10.4); Carbon Dioxide 26 mmol/L (20-31); Total Protein 6.6 g/dL (5.7-8.2)
[2024-10-13 10:36] LABS: Alanine Aminotransferase 9 U/L (7-40); Aspartate Aminotransferase 9 U/L (13-40); Bilirubin, Total 1.6 mg/dL (0.2-1.0); Chloride 96 mmol/L (98-107); Glucose 276 mg/dL (74-106); Potassium 3.2 mmol/L (3.5-5.1); Sodium 132 mmol/L (136-145)
[2024-10-13 11:00] VITALS: BP 111/79; PULSE 103; RESP 18; O2SAT 100
[2024-10-13 11:07] LABS: Lipase 41 U/L (12-53)
[2024-10-13] MEDS ORDERED: PANT40TA2 PO (12:08)
[2024-10-13] MEDS ORDERED: ALUMCHW6 PO (12:08)
== END 2024-10-13 12:15 | disposition home or self-care (01) ==
LOC: ER 08:32
DX: K29.70 Gastritis, unspecified, without bleeding (principal); E87.6 Hypokalemia; K20.90 Esophagitis, unspecified without bleeding; K21.9 Gastro-esophageal reflux disease without esophagitis; E11.65 Type 2 diabetes mellitus with hyperglycemia; I10 Essential (primary) hypertension; Z79.899 Other long term (current) drug therapy; Z79.84 Long term (current) use of oral hypoglycemic drugs
CPT/HCPCS: 36415; 76705; 80053; 81001; 82962; 83690; 83735; 85025; 96361; 96374; 99285; J2765; J7040